=== PATIENT | male | born 1955 | race Caucasian/White ===

== ENCOUNTER 2016-11-30 05:24 | Inpatient (IN) | payer OTHER ==
[2016-11-23 09:53] LABS: BASOPHILS 0.5 %; BASOPHILS ABSOLUTE 0.04 10/3/uL (0.0-0.16); EOSINOPHILS 0 %; HEMATOCRIT 40.8 % (40.0-51.0); HEMOGLOBIN 14.2 g/dL (13.6-17.8); IMMATURE GRANULOCYTES 0.1 %; IMMATURE GRANULOCYTES ABSOLUTE 0.01 10/3/uL (0.0-0.11); LYMPHOCYTES 19.1 %; LYMPHOCYTES ABSOLUTE 1.52 10/3/uL (0.67-4.30); MEAN CORPUS HGB CONC 34.8 g/dL (32.0-36.0); MEAN CORPUSCULAR HEMOGLOB 30.1 pg (26.0-34.0); MEAN CORPUSCULAR VOLUME 86.4 fL (80-100); MEAN PLATELET VOLUME 10.6 fL (9.2-13.0); MONOCYTES 7.5 %; NEUTROPHILS 72.8 %; PLATELET COUNT 240 10/3/uL (150-400); RBC DISTRIBUTION WIDTH 13.3 % (12.0-16.0); RED CELL COUNT 4.72 10/6/uL (4.7-6.1)
[2016-11-23 09:56] LABS: MANUAL DIFF NO %
[2016-11-23 09:58] LABS: INTERNATIONAL NORMAL RATI 1.2 UNITS (-); PARTIAL THROMBO TIME 30.1 SEC (22.5-37.2)
[2016-11-23 10:14] LABS: A/G RATIO 1.3 (0.7-1.9); ALBUMIN 3.9 G/DL (3.5-5.0); ALKALINE PHOSPHATASE 110 U/L (45-117); BUN (BLOOD UREA NITROGEN) 17 MG/DL (6-23); CALCIUM, SERUM 9.8 MG/DL (8.5-10.4); CHLORIDE, SERUM 104 MMOL/L (96-112); CO2 (CARBON DIOXIDE) 28 MMOL/L (24-34); CREATININE 1.17 MG/DL (0.70-1.30); GFR AFRICAN AMERICAN 78 ML/MIN (>=60); GFR NON AFRICAN AMERICAN 67 ML/MIN (>=60); GLUCOSE, SERUM 92 MG/DL (60-99); POTASSIUM, SERUM 4.4 MMOL/L (3.5-5.3); SGOT(AST) 24 U/L (5-40); SGPT(ALT) 25 U/L (5-65); SODIUM, SERUM 137 MMOL/L (135-148); TOTAL BILIRUBIN 0.7 MG/DL (0-1.2); TOTAL PROTEIN 6.9 G/DL (6.0-8.5)
[2016-11-23 10:19] LABS: ASCORBIC ACID (UR NOT ORDER) NEG (NEG); BILIRUBIN, URINE NEGATIVE (NEG); KETONE, URINE NEGATIVE (NEG); LEUKOCYTE ESTERASE(NOT OR NEG (NEG); WBC (NOT ORDERED) (RFLEX) 1 (0-5)
--- NOTE | ~2016-11-30 | OP ---
Record Of Operation [facility] [address] [place]. 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 PROCEDURE: Revision of left total hip arthroplasty. FINISHER CARD TENDER: Lela Mercado. ANESTHESIA: General endotracheal. ESTIMATED BLOOD LOSS: 100 mL. COMPLICATIONS: None. DRAINS: ConstaVac x1. IMPLANTS: DePuy [place] 40 mm inner diameter, 56 mm outer diameter, +4 lateralized polyethylene liner. The femoral head ball was a size 40 +5 ceramic head. INDICATIONS FOR SURGERY: Mr. 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 It was recommended that he undergo revision to polyethylene liner. Risks of the procedure as detailed in the history and physical and operative consent were discussed prior to proceeding. He fully understood and has requested to proceed. DESCRIPTION OF PROCEDURE: The patient was brought to the operating room, and after adequate induction of general anesthesia, positioned in the right lateral decubitus position. All appropriate pressure points were padded. He received Ancef IV preoperatively. The left hip was prepped and draped in the usual sterile fashion. Time-out was performed confirming the appropriate surgical side and site. The patient's previous scar was used for a line for the incision. The skin and subcutaneous tissues were incised sharply. Electrocautery was used as needed to maintain hemostasis. The fascia rachel was divided in line with the incision. Electrocautery was used to free the fascial plane and the sciatic nerve identified posteriorly and carefully protected throughout the remainder of the case. A Charnley retractor was placed. There was a fluid collection consistent with the patient's diagnosis of metallosis. Posterior to the gluteus medius, the cystic fluid-filled sac was excised in total. The gluteus medius was then retracted anteriorly. A full-thickness capsulotomy was created at the posterior border of the gluteus medius and extended anteriorly and inferiorly using an inside-out technique. The hip capsule was opened. Deep cultures were taken. The hip pseudocapsule was normal in appearance. There was a small area of heterotopic ossification posteriorly, which was excised. The hip was then placed in flexion and internal rotation Record Of Operation [facility] [id number] [facility] [place]. [address] NAME: ABIGAIL KENDALL : 57 STATUS : ADM IN PAT#: [id number] AGE: 61 ADM/REG DATE : 11/30/16 MR#: [id number] REPORT SERV DATE: 11/30/16 DICTATED BY: OSMEL GARRISON DATE: 11/30/16 REPORT STATUS : Draft TRANSCRIBED BY: GASTON DATE: 11/30/16 and dislocated. The femoral head ball removed. Pocket was created superior to the acetabulum and the femoral trunnion placed in the pocket. Attention was then turned to the acetabulum. The margins of the shell were exposed by debridement with a rongeur and electrocautery. The metal liner was then disimpacted. The shell was inspected, it was normal in appearance and bone ingrown. The acetabular shell was irrigated with pulsatile lavage normal saline and dried and a 56 mm +4, 40 mm inner diameter polyethylene liner impacted into the clean shell. Trial reduction was then performed with a +5 head ball. The leg lengths were minimally changed. The hip was stable to 90 degrees of flexion and 80 degrees of internal rotation, had neutral abduction. It was also stable at its limit of extension and external rotation. The true 40 mm +5 ceramic head ball was then impacted into the clean Romo taper. The acetabulum was inspected to be sure it was free of all foreign matter and the hip reduced. The wound was copiously irrigated with normal saline. The capsule was repaired using interrupted #5 Ethibond in [id number] fashion. Drain was placed deep to the fascia. The fascia closed with interrupted #1 Vicryl suture in [id number] fashion. The subcutaneous tissues were approximated with interrupted 2-0 Vicryl suture and skin stapled. A sterile dressing applied. The patient awakened and taken to recovery room in stable condition. POSTOPERATIVE PLAN: He is to be mobilized and weightbearing as tolerated on his left lower extremity. He will be on Coumadin and mechanical DVT prophylaxis and will have physical therapy per total hip arthroplasty protocol. CARMEN/GASTON Osmel Garrison M.D. / [id number] CC: Kush Law M.D.
[~2016-11-30 05:24] MED LIST: ASAB PO; ASABAYER PO; CARDCD180 PO; ELIQUIS 5 MG TAB5 MG PO; FLECAINIDE50 MG PO; LISINOPRIL40 MG PO; NEXIUM20 M1 PO; PREV15 PO; PRIN10 PO; PRIN20 PO; VIAGRA25 PO
[2016-12-01 04:38] LABS: HEMATOCRIT 40.7 % (40.0-51.0); HEMOGLOBIN 13.7 g/dL (13.6-17.8)
[2016-12-01 04:41] LABS: INTERNATIONAL NORMAL RATI 1.1 UNITS (-); PROTIME (NOT ORD) 13.8 SEC (12.0-14.5)
[2016-12-01 04:44] LABS: CALCIUM, SERUM 9.3 MG/DL (8.5-10.4); CHLORIDE, SERUM 98 MMOL/L (96-112); CO2 (CARBON DIOXIDE) 27 MMOL/L (24-34); CREATININE 0.98 MG/DL (0.70-1.30); GFR AFRICAN AMERICAN 97 ML/MIN (>=60); GFR NON AFRICAN AMERICAN 83 ML/MIN (>=60); POTASSIUM, SERUM 4.5 MMOL/L (3.5-5.3); SODIUM, SERUM 135 MMOL/L (135-148)
[2016-12-01 04:45] LABS: BUN (BLOOD UREA NITROGEN) 12 MG/DL (6-23)
[2016-12-01 04:46] LABS: GLUCOSE, SERUM 132 MG/DL (60-99)
[2016-12-01] MEDS ORDERED: C5 (14:13)
[2016-12-01] MEDS ORDERED: PCET PO (14:13)
== END 2016-12-01 15:42 | disposition home or self-care (01) | DRG 468 ==
LOC: SDC/OF 05:24 → PACU 09:27 → 3JRC 10:18
PROVIDERS: Specialist
PROC: 0SWB0JZ Revision of Synthetic Substitute in Left Hip Joint, Open Approach (ICD-10-PCS; principal; 2016-11-30 06:30)
DX: T84.091A Other mechanical complication of internal left hip prosthesis, initial encounter (principal); Z96.643 Presence of artificial hip joint, bilateral; I10 Essential (primary) hypertension; Z79.899 Other long term (current) drug therapy; Z85.21 Personal history of malignant neoplasm of larynx; Z79.01 Long term (current) use of anticoagulants; I45.10 Unspecified right bundle-branch block; K21.9 Gastro-esophageal reflux disease without esophagitis
CPT/HCPCS: 36415; 71020; 72170; 80048; 80053; 81001; 85014; 85018; 85025; 85610; 85730; 86850; 86900; 86901; 87070; 87075; 87205; 87641; 88300; 88304; 88311; 93005; 97116-GP; 97150-GP; 97161-GP; 97165-GO; A9270-GY; C1776; J0690; J2250; J2270; J2405; J2710; J3010